=== PATIENT | male | born 1975 | race Caucasian/White ===

== ENCOUNTER 2018-10-14 05:54 | Inpatient (IN) | payer OTHER ==
[~2018-10-14] VITALS: Ht 152.4 cm; Wt 79.8 kg
[2018-10-14] VITALS (19 sets, daily range): BP systolic 111–179; BP diastolic 74–108
--- NOTE | ~2018-10-14 | D ---
[address] [address] DISCHARGE SUMMARY Name: ALISSA RAMIRES Room: [address] IN M.R.#: [id number] Admission: 10/14/18 Attend Phys: Ciaran Sylvester MD, F Discharge: 10/16/18 Date of : 73 Report #: [id number] THIS REPORT FOR: //name// CC: Ciaran Sylvester [facility] physician/PCP Patient's Chart DATE OF SERVICE: 10/16/2018 DISCHARGE DIAGNOSES: 1. 1. Acute anterior ST segment elevation myocardial infarction. 2. 2. Ischemic cardiomyopathy. 3. 3. Hyperlipidemia. 4. 4. Nonsustained ventricular tachycardia. CONSULTANTS: None. 1. PROCEDURES: Emergent left heart catheterization with attempts at coronary angioplasty, left anterior descending artery via the femoral approach. HISTORY OF PRESENT ILLNESS: The patient is a 43-year-old white male who came to the Emergency Room complaining of chest pain. The patient has no previous history of heart disease. He is currently not under physician's care and is on no medications. For the past year, he has had intermittent tightness in his chest. It is not related to exertion or meals. Denied any recent fever, cough or bleeding. Denied any trauma to his chest. On the day of admission, he woke up at 2:30 in the morning with a pressure in his chest, felt diaphoretic, nauseated. His brought him to the Emergency Room. ECG showed evidence of an anterior STEMI. A code STEMI was activated. I was asked to see him on an emergent basis. On my arrival, his chest pressure had improved, but was still present. He denied a history exertional dyspnea, palpitations or syncope. PAST MEDICAL HISTORY: He has had a previous tonsillectomy. There is no history of hypertension, diabetes, hyperlipidemia. MEDICATIONS: He is on no medications. ALLERGIES: He has an allergy to PENICILLIN. PHYSICAL EXAMINATION: VITAL SIGNS: Blood pressure 130/70, pulse 70. CHEST: Clear to auscultation. CARDIAC: Regular rate and rhythm. ABDOMEN: Soft. EXTREMITIES: He had no edema. SKIN: Warm, [place] [address] DISCHARGE SUMMARY Name: ALISSA RAMIRES Lenin Room: [address]#: [id number] Admission: 10/14/18 Attend Phys: Ciaran Sylvester MD, F Discharge: 10/16/18 Date of : 73 Report #: [id number] NEUROLOGIC: Nonfocal. LYMPH: No adenopathy MUSCULOSKELETAL: No joint effusion. ECG showed peaking of the T waves in V3, V4 and V5. There appeared to be ST segment elevation in V2, V3 and V4, but no reciprocal changes. Portable chest x-ray, normal heart size, clear lung marquez. LABORATORY DATA: Sodium 137, potassium is only 3.0, glucose 131. Liver function studies were normal. Troponin is 0.08. Hemoglobin 15.7. 1. HOSPITAL COURSE: The patient was taken emergently to the cardiac catheterization lab. The right groin area was cleaned with ChloraPrep and sterilely draped in usual fashion. I then performed an emergent cardiac catheterization through the right femoral artery. Results appeared to show complete occlusion of the proximal LAD. There is no obvious staining. There did appear to be calcification. There was only a 50% narrowing of the right coronary artery and a 50% narrowing of the ramus branch. I recommended attempted angioplasty. He was then given heparin. I attempted to pass a wire into the LAD. However, it was difficult because of the acute takeoff of the LAD from the left main. I was able to advance a wire into the proximal LAD, but could not be advanced across the occlusion. There appeared to be collaterals to the LAD from the right coronary artery. Despite multiple efforts and multiple wires and catheters, a wire could not be advanced across the occlusion. It is actually unclear whether this represented an acute occlusion or chronic occlusion. Fortunately, his chest pain resolved. It was decided to recommend medical therapy. Left ventriculogram showed an ejection fraction of only 40-45% with an anterior wall hypokinesis. LVEDP was 25. The patient was placed on a beta zuleika, statin drug, aspirin and Plavix. Fortunately, he had no further chest pain or shortness of breath. On the first hospital day, the patient did have a run of nonsustained ventricular tachycardia at 160 beats per minute, lasting several seconds. This is relatively asymptomatic. Fortunately, he had no further ventricular tachycardia. Prior to discharge, the patient was ambulating in the halls with cardiac rehabilitation. Additional workup during his hospitalization, he was given potassium replacement. His followup potassium was 3.7. Fasting blood sugar was 129. Peak troponin was 19. Cholesterol 259, triglyceride 109, HDL 48, LDL 190. Glycosylated hemoglobin was 5.8 consistent with average blood glucose of 120. His followup hemoglobin was 15.7. The patient at the time of discharge had a blood pressure of 120/80, pulse 70, he is afebrile. 2. 3. DISCHARGE MEDICATIONS: The patient was discharged on the following medications: Losartan 25 mg a day, Lipitor 80 mg a day, aspirin 81 mg a day, Plavix 75 mg a day, carvedilol 3.125 mg twice a day and he was given nitroglycerin to take as needed for chest pain. 4. [facility] [address] [place] [address] DISCHARGE SUMMARY Name: ALISSA RAMIRES Lenin Room: [address] IN M.R.#: [id number] Admission: 10/14/18 Attend Phys: Ciaran Sylvester MD, F Discharge: 10/16/18 Date of : 73 Report #: [id number] 5. DISCHARGE INSTRUCTIONS: He was felt to have a guarded prognosis due to his ischemic cardiomyopathy. I did recommend he obtain a primary care physician, start an exercise program, maintain low fat diet. He is scheduled to return to see me in the Cardiology Clinic in 1 month for followup. He was to contact my office if he had recurrent chest pain, shortness of breath or bleeding. Follow up ECG showed a sinus rhythm with septal Q-waves. The patient was given a return to work after one week. Unfortunately, he has no medical insurance at this time. By: 0822 [id number] Sylvester MD, [facility] /nt
[~2018-10-14 05:54] MED LIST: BACTRIM DS TAB1 EACH PO; NORCO 5-325 TA1 EACH PO
[2018-10-14 06:23] LABS: ABSOLUTE BASOPHILS 0.1 thou/uL (0.0-0.2); ABSOLUTE EOSINOPHILS 0.1 thou/uL (0.0-0.7); ABSOLUTE LYMPHOCYTES 1.5 thou/uL (0.8-5.3); ABSOLUTE MONOCYTES 0.8 thou/uL (0.0-1.2); ABSOLUTE NEUTROPHILS 7.9 thou/uL (1.6-8.1); BASOPHILS 0.8 %; EOSINOPHILS 1.2 %; HEMOGLOBIN 15.7 gm/dL (14.0-18.0); LYMPHOCYTES 14.2 %; MCH 30.9 pg (26.0-34.0); MCHC 34.9 g/dL (28.0-37.0); MCV 88.3 fL (80.0-100.0); MONOCYTES 7.5 %; MPV 8.1 fl. (7.2-11.1); NUCLEATED RBCS 0 /100WBC; PLATELET COUNT* 261 thou/uL (150-400); POLYS 76.3 %; RBC 5.09 mil/uL (4.50-6.00); RDW-CV 12.7 % (10.5-14.5); WBC 10.3 thou/uL (4.0-11.0)
[2018-10-14 07:03] LABS: ALBUMIN 4.1 g/dL (3.4-5.0); CALCIUM 9.1 mg/dL (8.5-10.1); CREATININE 1.2 mg/dL (0.6-1.3); TOTAL BILIRUBIN 0.2 mg/dL (<0.1-1.0); TOTAL PROTEIN 7.9 g/dL (6.4-8.2); TROPONIN-I LEVEL 0.08 ng/mL (<0.06)
--- NOTE | 2018-10-14 11:39 | EKG ---
[place] [address] ELECTROCARDIOGRAM REPORT Name: ALISSA RAMIRES Room: [address] ADM IN .R.#: [id number] Admission: 10/14/18 Attend Phys: Ciaran Sylvester MD, F Discharge: Date of : 73 Report #: [id number] THIS REPORT FOR: //name// [facility] Test Date: 2018-10-14 Test Time: 06:01:01 Pat Name: ALISSA RAMIRES Department: Room: [address] Gender: M Inspector Canvas Products: HALEY : 1975 Requested By: Miriam Perales Order Number: [id number] Rosa MD: Ciaran Sylvester Measurements Intervals [place] Rate: 82 P: 51 [place]: 149 QRS: -14 QRSD: 92 T: 21 QT: 380 QTc: 444 Interpretive Statements Sinus rhythm Probable left atrial enlargement Anterior infarct, acute (LAD) No previous ECG available for comparison Electronically Signed On 10-14-2018 11:38:54 COMMISSIONING SPECIALIST by Ciaran Sylvester [email or web address] <ELECTRONICALLY SIGNED> By: Ciaran Sylvester MD, [facility] 10/14/18 1138 06 0 Ciaran Sylvester MD, [facility] /EPI
--- NOTE | 2018-10-14 11:39 | EKG ---
[place] [address] ELECTROCARDIOGRAM REPORT Name: ALISSA RAMIRES Room: [address] ADM IN .R.#: [id number] Admission: 10/14/18 Attend Phys: Ciaran Sylvester MD, F Discharge: Date of : 73 Report #: [id number] THIS REPORT FOR: //name// [facility] Test Date: 2018-10-14 Test Time: 06:07:58 Pat Name: ALISSA RAMIRES Department: Room: [address] Gender: M Health Screener: HALEY : 1975 Requested By: Ciaran Sylvester Order Number: [id number] Rosa MD: Ciaran Sylvester Measurements Intervals [place] Rate: 78 P: 53 ME: 150 QRS: -9 QRSD: 91 T: 14 QT: 386 QTc: 440 Interpretive Statements Sinus rhythm Probable left atrial enlargement Anterior infarct, acute (LAD) No previous ECG available for comparison Electronically Signed On 10-14-2018 11:39:09 WAX CUTTER by Ciaran Sylvester [email or web address] <ELECTRONICALLY SIGNED> By: Ciaran Sylvester MD, [facility] 10/14/18 1139 6 6 Ciaran Sylvester MD, FACC /EPI
--- NOTE | 2018-10-14 11:39 | EKG ---
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
--- NOTE | 2018-10-14 11:49 | EKG ---
[place] [address] ELECTROCARDIOGRAM REPORT Name: ALISSA RAMIRES Room: [address] ADM IN .R.#: [id number] Admission: 10/14/18 Attend Phys: Ciaran Sylvester MD, F Discharge: Date of : 73 Report #: [id number] THIS REPORT FOR: //name// [facility] Test Date: 2018-10-14 Test Time: 10:26:02 Pat Name: ALISSA RAMIRES Department: Room: [address] Gender: M Tap Builder: : 1975 Requested By: Miriam Perales Order Number: [id number] MD: Ciaran Sylvester Measurements Intervals [place] Rate: 69 P: 50 [place]: 147 QRS: -13 QRSD: 85 T: 35 QT: 385 QTc: 413 Interpretive Statements Sinus rhythm Probable anteroseptal infarct, old Electronically Signed On 10-14-2018 11:48:47 GRANTS SPECIALIST by Ciaran Sylvester [email or web address] <ELECTRONICALLY SIGNED> By: Ciaran Sylvester MD, [facility] 10/14/18 1148 1026 1026 Ciaran Sylvester MD, FACC /EPI
--- NOTE | 2018-10-14 13:33 | CARD ---
[address] [address] CARDIAC CATH REPORT Name: ALISSA RAMIRES Lenin Room: [address] IN M.R.#: [id number] Admission: 10/14/18 Attend Phys: Ciaran Sylvester MD, F Discharge: Date of : 73 Report #: [id number] THIS REPORT FOR: //name// APPROVED REPORT Study performed: 10/14/2018 07:08:48 Patient Details Patient Status: ED Room #: The patient is a 43 year-old male Event Personnel Ciaran Sylvester Consumer Product Advisor, Shea Carballo RN RN, Natasha Anguiano RN Monitor, Rj Leone Monitor, César Ramírez (R) Scrub Procedures Performed Art Access - R femoral artery* , Selective Right and Left Coronary AngiographyLeft Heart Cath w/or w/o Coronaries [id number] C , Left Ventriculogram Indication Abnormal ECG, STEMI (>0 to less than or equal to 6 hours), Chest pain Admission/Lab Medications/Medications given during procedure Heparin Unfract. Procedure Narrative The patient was brought urgently to the Cardiac Catheterization Laboratory and was prepped and draped in a sterile manner. The right femoral was infiltrated with 2% Lidocaine subcutaneous anesthesia. A 6fr Ultimum Sheath sheath was inserted into the right femoral artery. Coronary angiography was performed using coronary diagnostic catheters. The right coronary system was accessed and visualized with a 6fr JR 4 catheter. The left coronary system was accessed and visualized with a 6fr JL 4 catheter. The left ventricle was accessed and visualized with a 6fr Pigtail catheter. Left ventricular/Aortic Valve gradient assessed via catheter pullback. Left ventriculogram was performed in BECERRIL projection. Pre-demployment femoral angiogram was performed . Closure device was deployed with a 6 Fr Angioseal STS 6Fr. The patient tolerated the procedure well and there were no complications associated with the procedure. [place] [address] CARDIAC CATH REPORT Name: ALISSA RAMIRES Room: [address]#: [id number] Admission: 10/14/18 Attend Phys: Ciaran Sylvester MD, F Discharge: Date of : 73 Report #: [id number] Intraoperative Conscious Sedation Sedation start time: 07:41 Case end Time: 08:40 Fentanyl 50 mcg Versed 2 mg Fluoro Time: 14.3 minutes Dose: DAP 94331 cGycm2 1356.48 mGy Contrast Type and Amount: Visipaque 380 ml Coronary Angiography The patient's coronary anatomy is right dominant. Diagnostic Cath Left Main 0% stenosis LAD 100% occluded after the first septal associate product integrity engineer. Collaterals noted from the RCA. Circumflex 0% stenosis Right Coronary 40% proximal stenosis Ramus 50% mid stenosis Left Ventriculography The left ventricular ejection fraction is estimated to be 40-45%. Left ventricular wall motion abnormalities are present. There is no mitral insufficiency. moderate hypokinesis noted of the mid anterior wall. Hemodynamics The aortic pressure is 132/83 mmHg with a mean of mmHg. The left ventricular pressure is 155/8 mmHg with a mean of mmHg. The left ventricular end diastolic pressure is 25 mmHg. There was no gradient across the aortic valve upon pullback. Pullback from the left ventricle to the aorta revealed no gradient across the aortic valve. PCI Technique Unable to pass wire or balloon. PCI Technique Lesion Anticoagulation was achieved with Heparin. Percutaneous coronary intervention was performed on the proximal left anterior descending artery segment. The lesion stenosis prior to intervention was 100% with CASSI 0 flow. A xblad3.5 Guide Catheter was used to engage the lm ostium. A bmw Interventional Guidewire was used to cross the [place] [address] CARDIAC CATH REPORT Name: ALISSA RAMIRES Room: [address] IN [facility]#: [id number] Admission: 10/14/18 Attend Phys: Ciaran Sylvester MD, F Discharge: Date of : 73 Report #: [id number] Unable to cross occlusion with neither a bmw, prowater flex, nor choice PT wire. Attempted to cross with support from a [id number] balloon catheter in the left main and a steep bend on the end of the wire. Inability to cross appeared to be secondary to acute angle of takeoff of the lad from the left main, and possible chronic occlusion of the lad. Decided to abandon further attempts at PTCA. The patient had minimal chest pain at the end of the procedure. Final angiography reveals 100 % stenosis with CASSI 0 flow. Conclusion 1. mild LV dysfunction with an EF of 40-45% 2. complete occlusion of the proximal lad. Unable to tell whether this was a recent or chronic occlusion. Inablility to cross the occlusion with a guide wire appeared to be secondary to acute takeoff of lad from the left main, and perhaps chronic occlusion. Recommendations Cardiac Rehabilitation Referral Aggressive Medical Therapy <ELECTRONICALLY SIGNED> By: Ciaran Sylvester MD, FACC 10/14/18 1332 1332 [id number] Sylvester MD, FACC /INF
[2018-10-14 15:29] LABS: CALCIUM 8.9 mg/dL (8.5-10.1); POTASSIUM 3.7 mmol/L (3.5-5.1)
--- NOTE | 2018-10-14 15:56 | NUR ---
10/14 1515: PATIENT TO CT X2, IV BLEW ON FIRST. MRI ORDERED WHEN PATIENT IN CT, THEREFORE DIRECTLY WENT FROM CT TO MRI. PATIENT PREVIOUSLY DOWNGRADED AND OBTAINED A ROOM. PATIENT TO GO FROM MRI TO ROOM 314 AFTER MRI COMPLETED. PATIENT BELONGINGS AND MEDICATIONS TAKEN UP TO ROOM VIA [employer]. FAMILY INFORMED ON PLAN OF CARE, DAUGHTER WAS IN ROOM.
--- NOTE | 2018-10-14 18:27 | NUR ---
PT WITH MILD CHEST PAIN, HE FELT HIS HEART FLUTTER AND WAS DIAPHORETHIC AT 1400H WITH VTACH 17BEATS THEN BACK TO NSR. MD NOTIFIED. LABS CHECKED, POTASIUM WITHIN NORMAL LIMITS. NO CARDIAC EVENTS SINCE. OUT OF BED 3X FOR URINATION VIA URINAL.ICE PACK IN RIGHT GRION FOR COMFORT.
--- NOTE | 2018-10-14 22:10 | NUR ---
PT C/O CHEST PRESSURE 3/10 ACHING CONSTANT, PT STATES CP CONSISTANT BUT DECREASING SINCE BEFORE ADMISSION, REFUSING NITROGLYCERIN PO SL, REQUESTING AND RECEIVED HYDROCODONE 5/325MG PO FOR C/O CP, BACK, AND RIGHT GROIN DISCOMFORT, C/O INSOMNIA, REQUESTED AND RECEIVED AMBIEN 5MG PO FOR SLEEP. CONSUMED 10% OF DINNER MEAL, NSR WITH OCCASIONAL PVC'S TRACING LIGHT BULB REPLACER. DENIES SOA OR DIZZYNESS, SKIN REMAINS P/D/I. CALL LIGHT IN REACH, AT BEDSIDE, WILL CONTINUE TO MONITOR.
[2018-10-15] VITALS (16 sets, daily range): BP systolic 104–138; BP diastolic 53–90
[2018-10-15 04:51] LABS: ANION GAP 7 mmol/L (7-16); BUN 7 mg/dL (7-18); CALCIUM 8.5 mg/dL (8.5-10.1); CHLORIDE 102 mmol/L (98-107); CO2 28 mmol/L (21-32); GLUCOSE 129 mg/dL (70-99); POTASSIUM 3.7 mmol/L (3.5-5.1); SODIUM 137 mmol/L (136-145)
[2018-10-15 04:57] LABS: TROPONIN-I LEVEL 19.26 ng/mL (<0.06)
[2018-10-15 05:20] LABS: CHOLESTEROL 259 mg/dL (<200); HDL CHOLESTEROL 48 mg/dL (>40); LDL CHOLESTEROL 190 mg/dL (<100); TC:HDL 5.4 Ratio (Not establshd); TRIGLYCERIDE 109 mg/dL (<150); VLDL 22 mg/dL (<40)
[2018-10-15 05:23] LABS: SERUM ASSESSMENT Clear
--- NOTE | 2018-10-15 06:54 | NUR ---
PROGRESSING TOWARDS GOALS, RESTING QUIELTY WITH EYES CLOSED MOST OF NOC, EASILY AROUSABLE TO VERBAL STIMULI, DENIES CP OR DISCOMFORT THIS AM. AMBIEN 5MG PO GIVEN HS EFFECTIVE FOR INSOMNIA, HYDROCODONE 5/325MG PO EFFECTIVE FOR PAIN CONTROL. REMAINS AT BEDSIDE THROUGHOUT SHIFT. SAFETY MAINTAINED. CALL LIGHT REMAINS IN REACH.
--- NOTE | 2018-10-15 11:00 | NUR ---
SPOKE WITH PT. PT HAS BEEN ACTIVE AND INDEP. 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 HE DOES NOT HAVE A PCP. DISCUSSED COST OF MEDICATIONS AT DISCHARGE, HE SAID HE COULD AFFORD HIS MEDS. GAVE HIM SEVERAL PRESCRIPTION DRUG DISCOUNT CARDS AND INFO ON [email or web address] WEB SITE TO OBTAIN COUPONS FOR MEDICATIONS. PT SAID DR TOLD HIM HE COULD GO BACK TO WORK IN A WEEK. PT DENIES ANY DISCHARGE NEEDS. CARDIAC REHAB TO SEE PATIENT.
--- NOTE | 2018-10-15 11:21 | EKG ---
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: : 1975 Requested By: Ciaran Sylvester Order Number: [id number] MD: Juan Francisco Sheikh Measurements Intervals [place] Rate: 79 P: 45 VT: 132 QRS: -10 QRSD: 86 T: 36 QT: 344 QTc: 395 Interpretive Statements Sinus rhythm Anterior infarct, old Compared to ECG 10/14/2018 10:26:02 No significant changes Electronically Signed On 10-15-2018 11:21:20 COMMUNICATIONS TECHNICIAN by Juan Francisco Sheikh [email or web address] <ELECTRONICALLY SIGNED> By: Juan Francisco Sheikh MD, [facility] 10/15/18 1121 0756 0756 Juan Francisco Sheikh MD, FACC /EPI
--- NOTE | 2018-10-15 11:32 | H ---
[address] [address] HISTORY AND PHYSICAL Name: KEYLAALISSA W Room: [address] IN .R.#: [id number] Admission: 10/14/18 Attend Phys: Ciaran Sylvester MD, F Discharge: Date of : 73 Report #: [id number] THIS REPORT FOR: //name// CC: [facility] physician/PCP Miriam Perales DATE OF SERVICE: 10/14/2018 HISTORY OF PRESENT ILLNESS: The patient is a 43-year-old white male who came in to the Emergency Room complaining of chest pain. The patient has no previous history of heart disease. He is currently not under a physician's care. However, he notes for the past year, he has been having intermittent chest tightness. It is not related to exertion or meals. He denied any recent fever, cough or bleeding. Denied any trauma to his chest. He woke up at about 02:30 in the morning with a pressure in his chest, felt diaphoretic and nauseated. His brought him to the Emergency Room. ECG showed evidence of an anterior STEMI. A code STEMI was activated. I was asked to see him on an emergent basis. At this time, he continues to have some chest pressure. He denies exertional dyspnea, palpitations or syncope. PAST MEDICAL HISTORY: He has had a tonsillectomy. No history of hypertension, diabetes or hyperlipidemia. MEDICATIONS: He is on no medications. ALLERGIES: HE HAS AN ALLERGY TO PENICILLIN. FAMILY HISTORY: Negative for heart disease. SOCIAL HISTORY: He is . He and his live in [place], [place]. 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 No smoking or alcohol abuse. REVIEW OF SYSTEMS: He has had no history of stroke, asthma, peptic ulcer disease, liver disease, kidney disease, cancer, psychiatric illness or chronic skin condition. PHYSICAL EXAMINATION: GENERAL: Revealed a young white male, who appeared in mild distress. VITAL SIGNS: His blood pressure was 130/70, pulse was 70. HEENT: He was anicteric. Conjunctivae pink. Mucous membranes moist. NECK: Neck veins did not appear distended. No carotid bruits. CHEST: Clear to auscultation. CARDIAC EXAMINATION: Regular rate and rhythm. No murmurs. ABDOMEN: Soft. EXTREMITIES: He had no edema. Posterior tibial pulse 2+ bilaterally. SKIN: [place] [address] HISTORY AND PHYSICAL Name: ALISSA RAMIRES Room: [address]#: [id number] Admission: 10/14/18 Attend Phys: Ciaran Sylvester MD, F Discharge: Date of : 73 Report #: [id number] NEUROLOGICAL EXAMINATION: Nonfocal. DIAGNOSTIC DATA: His ECG on admission showed a sinus rhythm. There was a poor R-wave progression. He had peaking of the T waves in leads V3, V4 and V5. There appeared to be some ST-segment elevation in leads V2, V3 and V4, but there were no reciprocal changes. His workup in the Emergency Room, he had a portable chest x-ray that showed normal heart size and clear lung marquez. LABORATORY DATA: Sodium 137, potassium is 3, creatinine 1.2 and glucose 131. Liver function studies were normal. Troponin was 0.08. White blood cell count 10.3, hemoglobin of 15.7. IMPRESSION AND RECOMMENDATIONS: 1. Acute anterior wall ST-segment elevation myocardial infarction. Recommend urgent cardiac catheterization. 2. Hypokalemia. Recommend replacing potassium. <ELECTRONICALLY SIGNED> By: Ciaran Sylvester MD, FACC 10/15/18 1132 0900 [id number] Sylvester MD, FACC /nt
--- NOTE | 2018-10-15 19:26 | NUR ---
10/15 DAYS: Patient feeling much better today. Up multiple times out of bed. Walked halls with extruder operator horizontal. Appetite improving. Slept well, would like another sleeping pill tonight. No arrythmias. Tolerating new meds.
[2018-10-16] VITALS: BP 86/53
[2018-10-16 02:10] LABS: GLYCOHEMOGLOBIN (HGB A1C) 5.8 % (4.8-5.6)
[2018-10-16 04:00] VITALS: BP 104/59
--- NOTE | 2018-10-16 06:47 | NUR ---
ASSUMED PT CARE AT 1930. ASSESSMENT COMPLETED CHARTED. ABLE TO MAKE NEEDS KNOWN. PT RESTING IN BED AT THIS TIME. ABLE TO MAKE NEEDS KNOWN. UP WITH ASSIST. NO C/O PAIN OR DISCOMFORT. WILL CONTINUE TO MONITOR.
[2018-10-16 07:13] VITALS: BP 123/90
[2018-10-16 08:00] VITALS: BP 117/76
--- NOTE | 2018-10-16 09:37 | NUR ---
ASSUMED CARE OF PT AT 0730. PT RESTING IN BED WAITING FOR BREAKFAST. AT BEDSIDE. PT A&0X4, DENIES ANY PAIN OR SHORTNESS OF BREATH AT THIS TIME. PT TRACING SR ON THE SANDER HAND. ON RA SAT UPPER 90'S. PT UP AD MIRIAN IN ROOM. RIGHT GROIN CATH SITE C/D/I WITH NO HEMATOMA. PT GOAL FOR TODAY IS REMAIN FREE FROM CHEST PAIN, SHOWER INDEPENDENTLY AND DISCHARGE TO HOME. AM ASSESSMENT CHARTED. MEDICATIONS PER OCT. PT REPOSITIONS SELF. HOURLY ROUNDING OBSERVED. BED IN LOW POSITION. CALL LIGHT WITHIN REACH. WILL CONTINUE PLAN OF CARE.
[2018-10-16] MEDS ORDERED: LIPITOR80 MG PO (10:10)
[2018-10-16] MEDS ORDERED: ASPIR 8181 MG PO (10:10)
[2018-10-16] MEDS ORDERED: CARVEDILOL3.125 MG PO (10:11)
[2018-10-16] MEDS ORDERED: PLAVIX 75 MG TA75 M1 PO (10:11)
[2018-10-16] MEDS ORDERED: NITROGLYCERIN0.4 MG SUBLING (10:14)
[2018-10-16] MEDS ORDERED: TYLENOL325 M1 PO (10:14)
[2018-10-16 10:17] VITALS: BP 123/90
--- NOTE | 2018-10-16 11:39 | NUR ---
DISCHARGE ORDERS RECEIVED. DISCHARGE INSTRUCTIONS, CARE NOTES, SCRIPTS AND FOLLOW UP APPTS GIVEN TO PT. PT COMMUNICATES UNDERSTANDING OF DISCHARGE TEACHING. IV AND INDUCTION FURNACE OPERATOR REMOVED. PT DISCHARGED WITH ALL BELONGINGS AND PAPERWORK VIA WHEELCHAIR WITH [employer] TO SPOUSE OWN PERSONAL VEHICLE.
== END 2018-10-16 11:40 | disposition home or self-care (01) | DRG 281 ==
LOC: M.ERS 05:54 → M.CL 05:54 → M.TBA-CV 07:15 → M.ICU 07:15 → M.ERS 07:32 → M.ICU 09:20 → M.2W 10-15 19:23
PROVIDERS: Personal Emergency Response Attendant; ADMIT Internal Medicine Cardiovascular Disease
DX: I21.09 ST elevation (STEMI) myocardial infarction involving other coronary artery of anterior wall (principal); I47.2 Ventricular tachycardia; E87.6 Hypokalemia; I25.5 Ischemic cardiomyopathy; E78.5 Hyperlipidemia, unspecified; I25.110 Atherosclerotic heart disease of native coronary artery with unstable angina pectoris; Z79.899 Other long term (current) drug therapy; Z88.0 Allergy status to penicillin